=== PATIENT | male | born 2000 | race Caucasian/White ===

== ENCOUNTER 2022-10-14 12:25 | Outpatient (CLI) | payer MEDICAID, OTHER ==
--- NOTE | 2022-10-14 20:27 | XRAY Report ---
PROCEDURE: Ankle 3 View BILAT INDICATIONS: ANKLE JOINT PAIN TECHNIQUE: 3 views each of the right and left ankles were acquired. COMPARISON: None. FINDINGS: Bones: Small subchondral lucency is seen at the right medial talar dome that could represent a small chronic osteochondral lesion. No acute osseous fracture or dislocation. Mild pes planus bilaterally. Left calcaneal pitch is 15.5 degrees and right calcaneal pitch is 16 degrees Soft tissues: No tibiotalar joint effusion. Achilles tendon appears normal. IMPRESSION: 1.Small lucency small subchondral lucency at the right medial talar dome is suspicious for a chronic osteochondral lesion. MRI could be performed for further characterization if indicated clinically. 2.Mild pes planus bilaterally. Reviewed by: Guilherme Sánchez MD on 10/14/2022 8:26 PM PDT Approved by: Guilherme Sánchez MD on 10/14/2022 8:26 PM PDT Station ID: [id number]
== END 2022-10-14 23:59 | disposition home or self-care (01) ==
LOC: DI.N 12:25
PROVIDERS: ATTEND Physician Assistant Medical
DX: M25.579 Pain in unspecified ankle and joints of unspecified foot (principal); M21.42 Flat foot [pes planus] (acquired), left foot; M21.41 Flat foot [pes planus] (acquired), right foot